=== PATIENT | female | born 1945 | race Caucasian/White ===

== ENCOUNTER → 2018-04-16 | Outpatient (CLI) | payer MEDICARE ==
[~2018-04-16] MED LIST: ALEN35TA6 PO; AMLO10TA2 PO; ASPI-496 PO; HYDR-3343 PO; LISI-170 PO; METO50TA82 PO; MULT-717 PO; OXCA300T PO; PHEN100T2 PO; POTA99TA3 PO; SIMV20TA3 PO; SPIR25TA3 PO
[2018-04-16 12:05] LABS: ALANINE AMINOTRANSFERASE 24 U/L (12-78); ALBUMIN 2.7 g/dL (3.4-5.0); ANION GAP 5 mmol/L (5-15); CALCIUM 8.9 mg/dL (8.5-10.1); CHLORIDE 101 mmol/L (98-107); CREATININE 0.82 mg/dL (0.55-1.02)
[2018-04-16 12:08] LABS: ALKALINE PHOSPHATASE 125 U/L (45-117); BILIRUBIN,TOTAL 0.2 mg/dL (0.2-1.0); TOTAL PROTEIN 8.3 g/dL (6.4-8.2)
== END | disposition home or self-care (01) ==
LOC: STAR 10:36
PROVIDERS: ATTEND Orthopaedic Surgery
DX: Z01.818 Encounter for other preprocedural examination (principal); S82.892P Other fracture of left lower leg, subsequent encounter for closed fracture with malunion; M12.872 Other specific arthropathies, not elsewhere classified, left ankle and foot; X58.XXXD Exposure to other specified factors, subsequent encounter
CPT/HCPCS: 36415; 80053; 93005

== ENCOUNTER 2018-04-20 08:24 | Day surgery (SDC) | payer MEDICARE ==
[~2018-04-20] VITALS: Ht 167.6 cm; Wt 73.5 kg
[2018-04-20] MEDS ORDERED: LACTATED RINGERS 1,000 ML IV SCH (08:52)
[2018-04-20 09:19] VITALS: BP 169/73
[2018-04-20] MEDS ORDERED: ACETAMINOPHEN 500 MG TABLET PO ONE (10:00)
[2018-04-20] MEDS ORDERED: GABAPENTIN 300 MG CAPSULE PO ONE (10:00)
[2018-04-20] MEDS ORDERED: FENTANYL PF 250 MCG/5ML ONE (10:52)
[2018-04-20] MEDS ORDERED: VANCOMYCIN 1,000 MG ONE (10:52)
[2018-04-20] MEDS ORDERED: LIDOCAINE/PF 1%, 30ML ONE (10:53)
[2018-04-20] MEDS ORDERED: CEFAZOLIN 1,000 MG ONE (11:14)
[2018-04-20] MEDS ORDERED: PROPOFOL 10 MG/ML, 20ML ONE (11:14)
[2018-04-20] MEDS ORDERED: ONDANSETRON ODT 8 MG PO PRN (12:30)
[2018-04-20] MEDS ORDERED: OXYcodone 5 MG/5 ML ORAL.SOL UDC PO PRN (12:30)
[2018-04-20] MEDS ORDERED: hydrALAzine 20 MG/ML, 1ML IV PRN (12:30)
[2018-04-20] MEDS ORDERED: MORPHINE SULFATE 4 MG/ML, 1ML IVPush PRN (12:30)
[2018-04-20] MEDS ORDERED: PROMETHAZINE 25 MG/ML, 1ML IV PRN (12:30)
[2018-04-20] MEDS ORDERED: FENTANYL PF 100 MCG/2ML IV PRN (12:30)
== END 2018-04-20 16:00 ==
LOC: OUT 08:24
PROVIDERS: ATTEND Orthopaedic Surgery
DX: M86.8X7 Other osteomyelitis, ankle and foot (principal); M19.072 Primary osteoarthritis, left ankle and foot; I25.10 Atherosclerotic heart disease of native coronary artery without angina pectoris; Z87.39 Personal history of other diseases of the musculoskeletal system and connective tissue; I10 Essential (primary) hypertension; Z88.0 Allergy status to penicillin; Z88.8 Allergy status to other drugs, medicaments and biological substances
CPT/HCPCS: 11981; 20680; 27640; 27705; 28120; 73600; 76000; 87070; 87075; 87077; 87176; 87186; 87205; C1713; J0690; J2704; J3010; J3370; J3490; J7120

== ENCOUNTER 2018-10-09 13:07 | Inpatient (IN) | payer MEDICARE ==
[~2018-10-09] VITALS: Ht 167.6 cm; Wt 72.0 kg
[~2018-10-09 13:07] MED LIST changes: +AMIO200T42 PO; -AMLO10TA2 PO; +AMLO10TA6 PO; +ATOR20TA9 PO; +CARV12.543 PO; +DAPT500V6 IV; +DOCU100C33 PO; +DOXA1TAB PO; +Daptomycin IVPB; +ENOX40SY4 SQ; +FAMO20TA7 PO; +HYDR100T25 PO; +LIDO700A20 TD; +LIDOCAINE PATCH TD; +LISI-167 PO; +LISI40TA PO; +ONDA4TAB7 PO; +OXCA150T3 PO; -OXCA300T PO; +OXCA300T19 PO; +POLY17PO5 PO; +POTA20PA25 PO; +QUET25TA PO; +RIVA20TA PO; -SPIR25TA3 PO; +SPIR25TA5 PO; +TRAM50TA2 PO
[2018-10-09 15:54] VITALS: BP 134/56
[2018-10-09] MEDS ORDERED: ONDANSETRON 4 MG TABLET PO PRN (17:00)
[2018-10-09] MEDS ORDERED: ONDANSETRON ODT 4 MG PO PRN (17:00)
[2018-10-09] MEDS ORDERED: LABETALOL 5MG/ML, 20ML IVPush PRN (17:00)
[2018-10-09] MEDS ORDERED: hydrALAzine 20 MG/ML, 1ML IVPush PRN (17:00)
[2018-10-09] MEDS ORDERED: DAPTOMYCIN 500 MG IV SCH (17:00)
[2018-10-09] MEDS ORDERED: ONDANSETRON 2MG/ML, 2ML IVPush PRN (17:00)
[2018-10-09 20:04] VITALS: BP 133/61
[2018-10-09] MEDS: ATORVASTATIN 20 MG TABLET PO SCH (20:20)
[2018-10-09] MEDS: QUETIAPINE 25MG TABLET PO SCH (20:21)
[2018-10-09] MEDS: DAPTOMYCIN 500 MG in SODIUM CHLORIDE 0.9% 100 ML IV SCH (20:22)
[2018-10-09] MEDS: ACETAMINOPHEN 325 MG TABLET PO PRN (20:28)
[2018-10-09] MEDS: OXCARBAZEPINE 150 MG TABLET PO SCH (20:29)
[2018-10-09] MEDS: DOCUSATE 100 MG CAPSULE PO SCH (20:34)
[2018-10-09] MEDS: HYDRALAZINE HCL 100 MG PO SCH (21:00)
[2018-10-10 01:44] VITALS: BP 132/62
[2018-10-10 05:07] LABS: ANION GAP 8 mmol/L (5-15); CALCIUM 9.2 mg/dL (8.5-10.1); CHLORIDE 99 mmol/L (98-107)
[2018-10-10 05:09] LABS: CREATININE 0.65 mg/dL (0.55-1.02)
[2018-10-10 05:12] LABS: BASOPHILS # (AUTO) 0.03 x10^3/uL (0-0.1); BASOPHILS % (AUTO) 1 % (0-1); EOSINOPHILS # (AUTO) 0.14 x10^3/uL (0-0.4); EOSINOPHILS % (AUTO) 3 % (1-7); LYMPHOCYTES # (AUTO) 1.82 x10^3/uL (1-3.4); LYMPHOCYTES % (AUTO) 36 % (22-44); MD NO; MEAN CORPUSCULAR HEMOGLOBIN 25.9 pg (27.0-34.8); MEAN CORPUSCULAR HGB CONC 32.9 g/dL (32.4-35.8); MEAN CORPUSCULAR VOLUME 78.7 fL (80-100); MONOCYTES # (AUTO) 0.43 x10^3/uL (0.2-0.8); MONOCYTES % (AUTO) 9 % (2-9); NEUTROPHILS # (AUTO) 2.58 x10^3/uL (1.8-6.8); NEUTROPHILS % (AUTO) 52 % (42-75); PLATELET COUNT 478 x10^3/uL (130-400); RED BLOOD COUNT 3.31 x10^6/uL (3.82-5.3); RED CELL DISTRIBUTION WIDTH 16.8 % (9.6-15.2)
[2018-10-10 07:36] VITALS: BP 146/62
[2018-10-10] MEDS: AMLODIPINE 10 MG TAB PO SCH (09:16)
[2018-10-10] MEDS: LISINOPRIL 20 MG TABLET PO SCH (09:16)
[2018-10-10] MEDS: DOCUSATE 100 MG CAPSULE PO SCH ×2 (09:17→20:36)
[2018-10-10] MEDS: DOXAZOSIN 1MG TABLET PO SCH (09:17)
[2018-10-10] MEDS: POTASSIUM CHLORIDE 20 MEQ TAB.ER.PRT PO SCH (09:17)
[2018-10-10] MEDS: AMIODARONE 200 MG TABLET PO SCH (09:17)
[2018-10-10] MEDS: POLYETHYLENE GLYCOL 17 GM PACKET PO SCH (09:17)
[2018-10-10] MEDS: OXCARBAZEPINE 150 MG TABLET PO SCH ×2 (09:55→20:36)
[2018-10-10] MEDS: HYDRALAZINE HCL 100 MG PO SCH ×3 (09:55→20:37)
[2018-10-10 13:42] VITALS: BP 144/61
[2018-10-10] MEDS: DAPTOMYCIN 500 MG in SODIUM CHLORIDE 0.9% 100 ML IV SCH (18:07)
[2018-10-10] MEDS: QUETIAPINE 25MG TABLET PO SCH (20:36)
[2018-10-10] MEDS: ATORVASTATIN 20 MG TABLET PO SCH (20:36)
[2018-10-10 20:46] VITALS: BP 129/54
[2018-10-11 01:49] VITALS: BP 127/56
[2018-10-11] MEDS ORDERED: FENTANYL PF 100 MCG/2ML ONE (07:29)
[2018-10-11] MEDS ORDERED: MIDAZOLAM 1 MG/ML, 2ML ONE (07:29)
[2018-10-11] MEDS ORDERED: TOBRAMYCIN SULFATE 1.2 GM IMP ONE (07:33)
[2018-10-11] MEDS ORDERED: DEXAMETHASONE 4 MG/ML, 1ML ONE ×2 (07:58→07:59)
[2018-10-11] MEDS ORDERED: PROPOFOL 10 MG/ML, 20ML ONE ×2 (07:58→08:15)
[2018-10-11] MEDS ORDERED: ONDANSETRON 2MG/ML, 2ML ONE (07:59)
[2018-10-11] MEDS ORDERED: PHENYLEPHRINE 10 MG/ML ONE (08:15)
[2018-10-11] MEDS ORDERED: CEFAZOLIN 1,000 MG ONE (08:15)
[2018-10-11] MEDS ORDERED: ACETAMINOPHEN 325 MG TABLET PO PRN (08:30)
[2018-10-11] MEDS ORDERED: PROMETHAZINE 25 MG/ML, 1ML IV PRN (08:30)
[2018-10-11] MEDS ORDERED: hydrALAzine 20 MG/ML, 1ML IV PRN (08:30)
[2018-10-11] MEDS ORDERED: MORPHINE SULFATE 4 MG/ML, 1ML IVPush PRN (08:30)
[2018-10-11] MEDS ORDERED: FENTANYL PF 100 MCG/2ML IV PRN (08:30)
[2018-10-11] MEDS ORDERED: ONDANSETRON ODT 8 MG PO PRN (08:30)
[2018-10-11] MEDS ORDERED: HYDROmorphone 1 MG/ML, 1ML IV PRN (08:30)
[2018-10-11] MEDS ORDERED: MEPERIDINE/PF 25MG/0.5ML IVPush PRN (08:30)
[2018-10-11] MEDS ORDERED: PROMETHAZINE 25 MG/ML, 1ML IM PRN ×2 (08:30)
[2018-10-11] MEDS ORDERED: PROMETHAZINE 12.5 MG SUPP PR PRN (08:30)
[2018-10-11] MEDS ORDERED: ONDANSETRON 2MG/ML, 2ML IV PRN (08:30)
[2018-10-11] MEDS ORDERED: LABETALOL 5MG/ML, 20ML IV PRN (08:30)
[2018-10-11] MEDS ORDERED: OXYcodone 5 MG/5 ML ORAL.SOL UDC PO PRN (08:30)
[2018-10-11] MEDS ORDERED: PROMETHAZINE 25 MG SUPP PR PRN (08:30)
[2018-10-11] MEDS: AMLODIPINE 10 MG TAB PO SCH (09:00)
[2018-10-11] MEDS: DOCUSATE 100 MG CAPSULE PO SCH ×2 (09:00→20:22)
[2018-10-11] MEDS: POLYETHYLENE GLYCOL 17 GM PACKET PO SCH (09:00)
[2018-10-11] MEDS: POTASSIUM CHLORIDE 20 MEQ TAB.ER.PRT PO SCH (09:00)
[2018-10-11] MEDS: AMIODARONE 200 MG TABLET PO SCH (09:00)
[2018-10-11] MEDS: OXCARBAZEPINE 150 MG TABLET PO SCH ×2 (09:00→20:23)
[2018-10-11] MEDS: DOXAZOSIN 1MG TABLET PO SCH (09:00)
[2018-10-11] MEDS: LISINOPRIL 20 MG TABLET PO SCH (09:00)
[2018-10-11] MEDS: HYDRALAZINE HCL 100 MG PO SCH (09:00)
[2018-10-11 09:54] LABS: INTERNATIONAL NORMALIZED RATIO 1.03 (0.93-1.1); PROTHROMBIN TIME 10.7 Seconds (9.6-11.5)
[2018-10-11] MEDS ORDERED: HYDROcodone/APAP 10/325 MG TABLET PO PRN (11:30)
[2018-10-11] MEDS ORDERED: morphine SULFATE 10 MG/ML, 1ML IV PRN (11:30)
[2018-10-11 13:56] VITALS: BP 144/65
[2018-10-11] MEDS ORDERED: DIPHENHYDRAMINE 50 MG CAPSULE PO PRN (15:00)
[2018-10-11] MEDS: RIVAROXABAN 20 MG TABLET PO SCH (18:01)
[2018-10-11 18:02] VITALS: BP 133/62
[2018-10-11] MEDS: DAPTOMYCIN 500 MG in SODIUM CHLORIDE 0.9% 100 ML IV SCH (18:45)
[2018-10-11] MEDS: SODIUM CHLORIDE FLUSH 10ML SYR IVF SCH (20:22)
[2018-10-11] MEDS: QUETIAPINE 25MG TABLET PO SCH (20:23)
[2018-10-11] MEDS: ATORVASTATIN 20 MG TABLET PO SCH (20:23)
[2018-10-11] MEDS: ACETAMINOPHEN 325 MG TABLET PO PRN (20:25)
[2018-10-11 21:51] VITALS: BP 136/65
[2018-10-12 03:07] VITALS: BP 141/60
[2018-10-12 04:59] LABS: HCT (SEDRATE) 24.2 % (34.6-47.8)
[2018-10-12 05:08] LABS: ALANINE AMINOTRANSFERASE 25 U/L (12-78); ALBUMIN 2.5 g/dL (3.4-5.0); ANION GAP 6 mmol/L (5-15); C-REACTIVE PROTEIN, QUANT 0.81 mg/dL (0.02-0.49); CALCIUM 8.7 mg/dL (8.5-10.1); CHLORIDE 101 mmol/L (98-107); CREATININE 0.66 mg/dL (0.55-1.02)
[2018-10-12 05:10] LABS: ALKALINE PHOSPHATASE 107 U/L (45-117); BILIRUBIN,TOTAL 0.3 mg/dL (0.2-1.0); TOTAL PROTEIN 6.1 g/dL (6.4-8.2)
[2018-10-12 06:43] LABS: BASOPHILS % (AUTO) 0 % (0-1); EOSINOPHILS # (AUTO) 0.04 x10^3/uL (0-0.4); EOSINOPHILS % (AUTO) 1 % (1-7); LYMPHOCYTES # (AUTO) 0.89 x10^3/uL (1-3.4); LYMPHOCYTES % (AUTO) 13 % (22-44); MD NO; MEAN CORPUSCULAR HEMOGLOBIN 25.6 pg (27.0-34.8); MEAN CORPUSCULAR HGB CONC 32.9 g/dL (32.4-35.8); MEAN PLATELET VOLUME 6.7 fL (7.4-10.4); MONOCYTES # (AUTO) 0.36 x10^3/uL (0.2-0.8); MONOCYTES % (AUTO) 5 % (2-9); NEUTROPHILS # (AUTO) 5.44 x10^3/uL (1.8-6.8); NEUTROPHILS % (AUTO) 81 % (42-75); PLATELET COUNT 463 x10^3/uL (130-400); RED BLOOD COUNT 3.05 x10^6/uL (3.82-5.3)
[2018-10-12 07:01] VITALS: BP 138/54
[2018-10-12] MEDS: ACETAMINOPHEN 325 MG TABLET PO PRN ×2 (07:44→13:49)
[2018-10-12] MEDS: SODIUM CHLORIDE FLUSH 10ML SYR IVF SCH (07:45)
[2018-10-12] MEDS ORDERED: ASPIRIN 81 MG TABLET CHEW PO SCH (09:00)
[2018-10-12] MEDS: AMLODIPINE 10 MG TAB PO SCH (09:19)
[2018-10-12] MEDS: POTASSIUM CHLORIDE 20 MEQ TAB.ER.PRT PO SCH (09:19)
[2018-10-12] MEDS: LISINOPRIL 20 MG TABLET PO SCH (09:20)
[2018-10-12] MEDS: DOXAZOSIN 1MG TABLET PO SCH (09:20)
[2018-10-12] MEDS: OXCARBAZEPINE 150 MG TABLET PO SCH (09:20)
[2018-10-12] MEDS: POLYETHYLENE GLYCOL 17 GM PACKET PO SCH (09:21)
[2018-10-12] MEDS: DOCUSATE 100 MG CAPSULE PO SCH (09:21)
[2018-10-12] MEDS: AMIODARONE 200 MG TABLET PO SCH (09:21)
[2018-10-12 13:53] VITALS: BP 103/41
[2018-10-12] MEDS ORDERED: LISI5TAB7 PO (14:36)
[2018-10-12 16:50] VITALS: BP 128/53
[2018-10-12] MEDS: RIVAROXABAN 20 MG TABLET PO SCH (16:51)
[2018-10-12] MEDS: DAPTOMYCIN 500 MG in SODIUM CHLORIDE 0.9% 100 ML IV SCH (16:56)
[2018-10-12 19:15] VITALS: BP 121/68
== END 2018-10-12 19:33 | DRG 492 ==
LOC: 4NOR 15:11
PROVIDERS: ADMIT Internal Medicine; ATTEND Internal Medicine
PROC: 0SHG08Z Insertion of Spacer into Left Ankle Joint, Open Approach (ICD-10-PCS; 2018-10-11)
PROC: 0SP Lower Joints, Removal (ICD-10-PCS; 2018-10-11)
PROC: 0SBG0ZZ Excision of Left Ankle Joint, Open Approach (ICD-10-PCS; principal; 2018-10-11 08:00)
DX: T84.098A Other mechanical complication of other internal joint prosthesis, initial encounter (principal); A41.02 Sepsis due to Methicillin resistant Staphylococcus aureus; E44.0 Moderate protein-calorie malnutrition; M00.9 Pyogenic arthritis, unspecified; T81.31XA Disruption of external operation (surgical) wound, not elsewhere classified, initial encounter; D68.59 Other primary thrombophilia; E22.2 Syndrome of inappropriate secretion of antidiuretic hormone; B95.62 Methicillin resistant Staphylococcus aureus infection as the cause of diseases classified elsewhere; D63.8 Anemia in other chronic diseases classified elsewhere; E78.5 Hyperlipidemia, unspecified; G40.909 Epilepsy, unspecified, not intractable, without status epilepticus; I11.9 Hypertensive heart disease without heart failure; I25.10 Atherosclerotic heart disease of native coronary artery without angina pectoris; I48.91 Unspecified atrial fibrillation; Z66 Do not resuscitate; Z79.01 Long term (current) use of anticoagulants; Z79.2 Long term (current) use of antibiotics; Z79.82 Long term (current) use of aspirin; Z68.25 Body mass index [BMI] 25.0-25.9, adult; Z88.0 Allergy status to penicillin; Z88.8 Allergy status to other drugs, medicaments and biological substances; Z79.899 Other long term (current) drug therapy; Z86.73 Personal history of transient ischemic attack (TIA), and cerebral infarction without residual deficits; Z95.5 Presence of coronary angioplasty implant and graft
CPT/HCPCS: 36415; 80048; 80053; 83735; 84100; 85025; 85610; 85651; 86140; 87070; 87075; 87077; 87102; 87176; 87186; 87205; C1713; G0378; J0690; J0878; J1100; J2250; J2405; J2704; J3010; J3260; J2370

== ENCOUNTER 2018-10-29 22:51 | Inpatient (IN) | payer MEDICARE ==
[~2018-10-29] VITALS: Ht 167.6 cm; Wt 68.3 kg
[~2018-10-29 22:51] MED LIST changes: +ATOR20TA37 PO; -ATOR20TA9 PO; +LISI5TAB7 PO
[2018-10-29] MEDS ORDERED: SODIUM CHLORIDE 0.9% 1,000 ML IV ONE (22:55)
[2018-10-29] MEDS ORDERED: SODIUM CHLORIDE FLUSH 10ML SYR IVF ONE (23:00)
[2018-10-29 23:26] LABS: BASOPHILS % (AUTO) 0 % (0-1); EOSINOPHILS # (AUTO) 0.11 x10^3/uL (0-0.4); EOSINOPHILS % (AUTO) 1 % (1-7); LYMPHOCYTES # (AUTO) 1.82 x10^3/uL (1-3.4); LYMPHOCYTES % (AUTO) 13 % (22-44); MD NO; MEAN CORPUSCULAR HEMOGLOBIN 25.1 pg (27.0-34.8); MEAN CORPUSCULAR VOLUME 78.2 fL (80-100); MEAN PLATELET VOLUME 7.1 fL (7.4-10.4); MONOCYTES # (AUTO) 0.39 x10^3/uL (0.2-0.8); MONOCYTES % (AUTO) 3 % (2-9); NEUTROPHILS # (AUTO) 11.86 x10^3/uL (1.8-6.8); NEUTROPHILS % (AUTO) 84 % (42-75); PLATELET COUNT 479 x10^3/uL (130-400); RED BLOOD COUNT 4.07 x10^6/uL (3.82-5.3); RED CELL DISTRIBUTION WIDTH 16.3 % (9.6-15.2)
[2018-10-29 23:37] LABS: INTERNATIONAL NORMALIZED RATIO 1.21 (0.93-1.1); PROTHROMBIN TIME 12.7 Seconds (9.6-11.5)
[2018-10-29 23:38] LABS: ALANINE AMINOTRANSFERASE 26 U/L (12-78); ALBUMIN 3.2 g/dL (3.4-5.0); ANION GAP 18 mmol/L (5-15); CALCIUM 8.8 mg/dL (8.5-10.1); CHLORIDE 99 mmol/L (98-107)
[2018-10-29 23:41] LABS: ALKALINE PHOSPHATASE 99 U/L (45-117); BILIRUBIN,TOTAL 0.1 mg/dL (0.2-1.0); CREATININE 1.12 mg/dL (0.55-1.02); TOTAL PROTEIN 7.4 g/dL (6.4-8.2)
[2018-10-29 23:47] LABS: MICROSCOPIC NOT IND
[2018-10-29 23:50] LABS: CULTURE INDICATED? NO
[2018-10-29] MEDS ORDERED: CEFTRIAXONE (23:57)
[2018-10-29] MEDS ORDERED: HYDR100T25 PO (23:57)
[2018-10-29] MEDS ORDERED: MULTIVITAMIN (23:57)
[2018-10-29] MEDS ORDERED: AMLO10TA4 PO (23:57)
[2018-10-29] MEDS ORDERED: MICONAZOLE POWDER (23:57)
[2018-10-29] MEDS ORDERED: METH500T97 PO (23:57)
[2018-10-30] VITALS (8 sets, daily range): BP systolic 133–184; BP diastolic 58–80
[2018-10-30] MEDS ORDERED: POTASSIUM CHLORIDE 40 MEQ in SODIUM CHLORIDE 0.9% 500 ML IV ONE ×2 (01:00→08:30)
[2018-10-30] MEDS ORDERED: DAPTOMYCIN 500 MG IV SCH (01:00)
[2018-10-30] MEDS ORDERED: LORazepam 2 MG/ML, 1ML IVPush PRN (01:30)
[2018-10-30] MEDS ORDERED: hydrALAzine 20 MG/ML, 1ML IVPush PRN (01:30)
[2018-10-30] MEDS ORDERED: LABETALOL 5MG/ML, 20ML IVPush PRN (01:30)
[2018-10-30] MEDS ORDERED: HEPARIN 5,000 UNITS/ML, 1ML SQ SCH (01:30)
[2018-10-30] MEDS ORDERED: DOCUSATE 100 MG CAPSULE PO PRN (01:30)
[2018-10-30] MEDS ORDERED: BISACODYL 10 MG SUPP PR PRN (01:30)
[2018-10-30] MEDS ORDERED: PROMETHAZINE 25 MG/ML, 1ML IM PRN (01:30)
[2018-10-30] MEDS: GABAPENTIN 300 MG CAPSULE PO SCH ×4 (01:30→20:42)
[2018-10-30] MEDS ORDERED: morphine SULFATE 10 MG/ML, 1ML IVPush PRN (01:30)
[2018-10-30] MEDS ORDERED: ONDANSETRON ODT 4 MG PO PRN (01:30)
[2018-10-30] MEDS ORDERED: ONDANSETRON 2MG/ML, 2ML IVPush PRN (01:30)
[2018-10-30] MEDS ORDERED: POLYETHYLENE GLYCOL 17 GM PACKET PO PRN (01:30)
[2018-10-30 02:03] LABS: FREE T4 (FREE THYROXINE) 0.71 ng/dL (0.76-1.46); THYROID STIMULATING HORMONE 2.03 mIU/L (0.358-3.740)
[2018-10-30] MEDS: CEFTRIAXONE PMX 2GM/50ML 50 ML IV SCH (02:43)
[2018-10-30] MEDS: SODIUM CHLORIDE 0.9% 1,000 ML IV SCH ×3 (02:46→20:41)
[2018-10-30] MEDS ORDERED: MAGNESIUM SULFATE PMX 2GM/50ML 50 ML IV ONE (08:30)
[2018-10-30] MEDS: AMIODARONE 200 MG TABLET PO SCH (09:40)
[2018-10-30] MEDS: ASPIRIN 81 MG TABLET EC PO SCH (09:40)
[2018-10-30] MEDS: OXCARBAZEPINE 150 MG TABLET PO SCH ×2 (09:41→20:42)
[2018-10-30] MEDS: MULTIVITAMIN 1 TABLET PO SCH (09:41)
[2018-10-30] MEDS: MAGNESIUM CHLORIDE 64 MG TABLET.DR PO SCH ×2 (09:41→20:42)
[2018-10-30] MEDS: METHOCARBAMOL 500 MG TABLET PO PRN ×2 (10:10→18:11)
[2018-10-30] MEDS: ACETAMINOPHEN 325 MG TABLET PO PRN ×3 (10:10→21:18)
[2018-10-30] MEDS: DAPTOMYCIN 500 MG in SODIUM CHLORIDE 0.9% 100 ML IV SCH (15:45)
[2018-10-30] MEDS ORDERED: ATORVASTATIN 20 MG TABLET PO SCH (21:00)
[2018-10-30] MEDS ORDERED: QUETIAPINE 25MG TABLET PO SCH (21:00)
[2018-10-30] MEDS ORDERED: RIVAROXABAN 20 MG TABLET PO SCH (21:00)
[2018-10-31 00:39] VITALS: BP 118/46
[2018-10-31] MEDS: CEFTRIAXONE PMX 2GM/50ML 50 ML IV SCH (02:12)
[2018-10-31] MEDS: SODIUM CHLORIDE 0.9% 1,000 ML IV SCH (02:52)
[2018-10-31 04:04] LABS: <PLATELET ESTIMATE> ADEQUATE; SMALL PLATELETS 1+
[2018-10-31 04:36] LABS: ALANINE AMINOTRANSFERASE 28 U/L (12-78); ALBUMIN 2.5 g/dL (3.4-5.0); ANION GAP 5 mmol/L (5-15); CALCIUM 7.8 mg/dL (8.5-10.1); CHLORIDE 109 mmol/L (98-107); CHOLESTEROL, TOTAL 134 mg/dL (140-239); CREATININE 0.66 mg/dL (0.55-1.02)
[2018-10-31 04:38] LABS: ALKALINE PHOSPHATASE 78 U/L (45-117); BILIRUBIN,TOTAL 0.2 mg/dL (0.2-1.0); HDL CHOLESTEROL (DIRECT) 51 mg/dL (40-60); TOTAL PROTEIN 5.8 g/dL (6.4-8.2); TRIGLYCERIDES 51 mg/dL (50-200); VLDL CHOLESTEROL 10 mg/dL (0-25)
[2018-10-31 05:20] LABS: HDL CHOL % 51 % (28-40)
[2018-10-31 05:32] LABS: BASOPHILS # (AUTO) 0.04 x10^3/uL (0-0.1); BASOPHILS % (AUTO) 1 % (0-1); EOSINOPHILS # (AUTO) 0.36 x10^3/uL (0-0.4); EOSINOPHILS % (AUTO) 7 % (1-7); LYMPHOCYTES # (AUTO) 1.71 x10^3/uL (1-3.4); LYMPHOCYTES % (AUTO) 35 % (22-44); MD NO; MEAN CORPUSCULAR HEMOGLOBIN 25.4 pg (27.0-34.8); MEAN CORPUSCULAR HGB CONC 32.9 g/dL (32.4-35.8); MEAN CORPUSCULAR VOLUME 77.3 fL (80-100); MEAN PLATELET VOLUME 7.4 fL (7.4-10.4); MONOCYTES # (AUTO) 0.43 x10^3/uL (0.2-0.8); MONOCYTES % (AUTO) 9 % (2-9); NEUTROPHILS % (AUTO) 48 % (42-75); PLATELET COUNT 312 x10^3/uL (130-400); RED BLOOD COUNT 3.14 x10^6/uL (3.82-5.3); RED CELL DISTRIBUTION WIDTH 16.1 % (9.6-15.2)
[2018-10-31 05:41] LABS: CHOL/HDL RATIO 2.6; LDL CHOLESTEROL,CALCULATED 73 mg/dL (54-169); LDL/HDL RATIO 1.4 (0.5-3.0)
[2018-10-31] MEDS: ASPIRIN 81 MG TABLET EC PO SCH (05:52)
[2018-10-31 07:10] VITALS: BP 164/99
[2018-10-31] MEDS: GABAPENTIN 300 MG CAPSULE PO SCH ×2 (09:36→15:17)
[2018-10-31] MEDS: METHOCARBAMOL 500 MG TABLET PO PRN (09:36)
[2018-10-31] MEDS: ACETAMINOPHEN 325 MG TABLET PO PRN ×2 (09:36→15:17)
[2018-10-31] MEDS: MAGNESIUM CHLORIDE 64 MG TABLET.DR PO SCH (09:36)
[2018-10-31] MEDS: OXCARBAZEPINE 150 MG TABLET PO SCH (09:36)
[2018-10-31] MEDS: MULTIVITAMIN 1 TABLET PO SCH (09:37)
[2018-10-31] MEDS: AMIODARONE 200 MG TABLET PO SCH (09:37)
[2018-10-31] MEDS ORDERED: TRAM50TA2 PO (12:06)
[2018-10-31] MEDS ORDERED: CEFTRIAXONE IV (12:06)
[2018-10-31] MEDS ORDERED: AMLO10TA4 PO (12:06)
[2018-10-31] MEDS ORDERED: METH500T97 PO (12:07)
[2018-10-31 12:58] VITALS: BP 152/71
[2018-10-31] MEDS: DAPTOMYCIN 500 MG in SODIUM CHLORIDE 0.9% 100 ML IV SCH (15:16)
== END 2018-10-31 17:12 | DRG 100 ==
LOC: ED 10-30 00:27 → EDIP 10-30 00:51 → 5SO 10-30 01:50
PROVIDERS: ADMIT Internal Medicine; ATTEND Internal Medicine
PROC: 0T9B70Z Drainage of Bladder with Drainage Device, Via Natural or Artificial Opening (ICD-10-PCS; principal; 2018-10-29)
DX: G40.409 Other generalized epilepsy and epileptic syndromes, not intractable, without status epilepticus (principal); J96.01 Acute respiratory failure with hypoxia; N17.0 Acute kidney failure with tubular necrosis; G92 Toxic encephalopathy; E87.2 Acidosis; M86.9 Osteomyelitis, unspecified; E44.0 Moderate protein-calorie malnutrition; D68.59 Other primary thrombophilia; E87.6 Hypokalemia; E86.0 Dehydration; D64.9 Anemia, unspecified; Z96.643 Presence of artificial hip joint, bilateral; E78.5 Hyperlipidemia, unspecified; I48.2 Chronic atrial fibrillation; I10 Essential (primary) hypertension; M81.0 Age-related osteoporosis without current pathological fracture; I25.10 Atherosclerotic heart disease of native coronary artery without angina pectoris; Z95.5 Presence of coronary angioplasty implant and graft; Z86.73 Personal history of transient ischemic attack (TIA), and cerebral infarction without residual deficits; Z82.49 Family history of ischemic heart disease and other diseases of the circulatory system; Z88.6 Allergy status to analgesic agent; Z88.0 Allergy status to penicillin; Z86.14 Personal history of Methicillin resistant Staphylococcus aureus infection; Z90.710 Acquired absence of both cervix and uterus; Z90.89 Acquired absence of other organs; Z90.49 Acquired absence of other specified parts of digestive tract; Z87.891 Personal history of nicotine dependence; Z68.24 Body mass index [BMI] 24.0-24.9, adult; T42.4X5A Adverse effect of benzodiazepines, initial encounter
CPT/HCPCS: 36415; 70450; 71045; 80053; 80061; 81003; 82550; 83036; 83605; 83735; 84100; 84145; 84439; 84443; 85025; 85610; 85730; 87040; 93005; 99285; G0378; J0696; J0878; J3480; J0360; J3475; J7030; J7040

== ENCOUNTER 2018-11-17 05:44 | Observation (INO) | payer MEDICARE ==
[~2018-11-17] VITALS: Ht 170.2 cm; Wt 69.4 kg
[~2018-11-17 05:44] MED LIST changes: +AMLO10TA4 PO; +CEFTRIAXONE; +CEFTRIAXONE IV; +METH500T97 PO; +MICONAZOLE POWDER; +MULTIVITAMIN
--- NOTE | 2018-11-17 05:55 | NUR ---
Pt BIBA r/t seizures and altered LOC. Pt had one witnessed seizure lasting approx 1 minute, EMS gave pt 4 of versed IM. Pt has hx of seizures. Pt responding only to pain for EMS. Pt not responding to pain upon arrival. Pt breathing E/U, pt placed on 4L O2 via NC, pt normally on this at [facility]. Provider to bedside for pt eval. seizure pads on bed. EKG completed. Pt placed on cardiac and VS monitoring.
[2018-11-17] MEDS ORDERED: SODIUM CHLORIDE FLUSH 10ML SYR IVF ONE (06:00)
--- NOTE | 2018-11-17 06:02 | NUR ---
xray at bedside.
--- NOTE | 2018-11-17 06:12 | NUR ---
Lab at bedside for blood draw.
--- NOTE | 2018-11-17 06:36 | NUR ---
urine sample collected via straight cath with second RN assist. urine sent to lab. pt pushed with significant strength against RN's while attempting straight catheter. pt continues to be lethargic otherwise. Sterile technique used and maintained during straight cath. Pt to CT via shira.
[2018-11-17 06:38] LABS: BASOPHILS % (AUTO) 0 % (0-1); EOSINOPHILS # (AUTO) 0.32 x10^3/uL (0-0.4); EOSINOPHILS % (AUTO) 3 % (1-7); LYMPHOCYTES # (AUTO) 0.77 x10^3/uL (1-3.4); LYMPHOCYTES % (AUTO) 6 % (22-44); MD NO; MEAN CORPUSCULAR HEMOGLOBIN 24.4 pg (27.0-34.8); MEAN CORPUSCULAR HGB CONC 32.7 g/dL (32.4-35.8); MEAN CORPUSCULAR VOLUME 74.7 fL (80-100); MEAN PLATELET VOLUME 7.2 fL (7.4-10.4); MONOCYTES % (AUTO) 8 % (2-9); NEUTROPHILS # (AUTO) 10.73 x10^3/uL (1.8-6.8); NEUTROPHILS % (AUTO) 84 % (42-75); PLATELET COUNT 299 x10^3/uL (130-400); RED BLOOD COUNT 3.81 x10^6/uL (3.82-5.3); RED CELL DISTRIBUTION WIDTH 16.4 % (9.6-15.2)
[2018-11-17 06:46] LABS: ALANINE AMINOTRANSFERASE 22 U/L (12-78); ALBUMIN 3.1 g/dL (3.4-5.0); ANION GAP 16 mmol/L (5-15); CALCIUM 8.7 mg/dL (8.5-10.1); CHLORIDE 103 mmol/L (98-107); CREATININE 0.98 mg/dL (0.55-1.02)
[2018-11-17] MEDS ORDERED: LISI2.5T PO (06:47)
[2018-11-17] MEDS ORDERED: RIVA20TA PO (06:47)
[2018-11-17] MEDS ORDERED: HYDR100T25 PO (06:49)
[2018-11-17 06:50] LABS: ALKALINE PHOSPHATASE 97 U/L (45-117); BILIRUBIN,TOTAL 0.2 mg/dL (0.2-1.0); TROPONIN I 0.025 ng/mL (0.000-0.045)
--- NOTE | 2018-11-17 06:51 | NUR ---
Pt return from CT. Pt yawning and responding to pain and touch. Pt appears comfortable. VSS. will continue to monitor.
--- NOTE | 2018-11-17 06:59 | NUR ---
Report to Emely SOUZA.
--- NOTE | 2018-11-17 07:06 | NUR ---
VSS, O2 IS 4L/NC. PT IS RESTING ON GURNEY WITH EYES CLOSED. WOUND VAC IS IN PLACE AT [facility]. SHOWS PICC LINE AT [facility]. PT IS RESPONSIVE TO STIMULI. PT IS A RESIDENT AT [facility]. PT IS IN ED FOR WITNESSED SEIZURE ACTIVITY. PT HAS HISTORY OF SEIZURES AND MRSA.
[2018-11-17] MEDS ORDERED: POTASSIUM CHLORIDE 40 MEQ in SODIUM CHLORIDE 0.9% 500 ML IV SCH (08:00)
[2018-11-17] MEDS ORDERED: NS + 40MEQ KCL 500 ML IV SCH (08:00)
--- NOTE | 2018-11-17 08:05 | NUR ---
NO CHANGE IN CONDITION , VSS. CALL LIGHT IS WITHIN REACH, PT IS RESTING ON GURNEY, INDEPENDENTLY CHANGES POSITION BY HERSELF ON GURNEY.
[2018-11-17 08:10] LABS: MICROSCOPIC INDICATED
[2018-11-17] MEDS ORDERED: SODIUM CHLORIDE 0.9% 1,000 ML IV ONE (08:14)
[2018-11-17 08:27] LABS: CULTURE INDICATED? YES
[2018-11-17] MEDS ORDERED: SODIUM CHLORIDE FLUSH 10ML SYR IVF PRN (08:30)
--- NOTE | 2018-11-17 08:37 | NUR ---
WAITING FOR KCL GTT FROM PHARMACY.
[2018-11-17] MEDS ORDERED: POTASSIUM CHLORIDE 40 MEQ in SODIUM CHLORIDE 0.9% 500 ML IV ONE ×2 (09:30→10:30)
--- NOTE | 2018-11-17 09:30 | NUR ---
VSS. PT IS RESTING ON GURNEY WITH EYES CLOSED, RESPIRATIONS EVEN AND UNLABORED. WAITING FOR UA RESULT FOR DISPO. CALL LIGHT IS WITHIN REACH.
[2018-11-17] MEDS ORDERED: NS + 20MEQ KCL 1,000 ML IV SCH (10:28)
[2018-11-17] MEDS ORDERED: hydrALAzine 20 MG/ML, 1ML IVPush PRN (10:30)
[2018-11-17] MEDS ORDERED: LABETALOL 5MG/ML, 20ML IVPush PRN (10:30)
--- NOTE | 2018-11-17 10:30 | NUR ---
RECEIVED KCL FROM PHARMACY. GTT STARTED AT THIS TIME. VSS. PT IS ALERT AND RESPONSIVE TO VOICE STIMULI.
[2018-11-17] MEDS ORDERED: ONDANSETRON 4 MG TABLET PO PRN (11:00)
[2018-11-17 11:04] LABS: THYROID STIMULATING HORMONE 2.61 mIU/L (0.358-3.740)
[2018-11-17] MEDS ORDERED: MAGNESIUM SULFATE PMX 2GM/50ML 50 ML IV ONE (11:30)
[2018-11-17] MEDS ORDERED: CEFTRIAXONE PMX 1GM/50ML 50 ML ONE (11:40)
[2018-11-17] MEDS: CEFTRIAXONE PMX 1GM/50ML 50 ML IV SCH (11:57)
--- NOTE | 2018-11-17 13:44 | NUR ---
PT HAD LARGE, SOFT BM X 1, AND URINATED IN BED MADRID. TAKING PO'S WITHOUT DIFFICULTY. ALERT AND ORIENTED X 4. SEIZURE PADS ARE IN PLACE. VSS.
--- NOTE | 2018-11-17 14:33 | NUR ---
CALLED REPORT TO TURNER SOUZA. OK FOR PT TO GO TO THE FLOOR NOW.
[2018-11-17 15:48] VITALS: BP 177/70
[2018-11-17] MEDS: ACETAMINOPHEN 325 MG TABLET PO PRN (16:11)
[2018-11-17] MEDS: QUETIAPINE 25MG TABLET PO SCH (21:47)
[2018-11-17] MEDS: ATORVASTATIN 20 MG TABLET PO SCH (21:48)
[2018-11-17] MEDS: OXCARBAZEPINE 150 MG TABLET PO SCH (21:49)
[2018-11-17] MEDS: RIVAROXABAN 20 MG TABLET PO SCH (21:49)
[2018-11-17] MEDS: DIVALPROEX 125 MG CAP.SPRINK PO SCH (21:49)
[2018-11-17 21:55] VITALS: BP 158/65
[2018-11-18 02:48] VITALS: BP 161/67
[2018-11-18] MEDS: ACETAMINOPHEN 325 MG TABLET PO PRN (03:07)
[2018-11-18 06:08] LABS: MEAN CORPUSCULAR HEMOGLOBIN 24.1 pg (27.0-34.8); MEAN CORPUSCULAR HGB CONC 32.4 g/dL (32.4-35.8); MEAN CORPUSCULAR VOLUME 74.4 fL (80-100); MEAN PLATELET VOLUME 7.3 fL (7.4-10.4); PLATELET COUNT 274 x10^3/uL (130-400); RED BLOOD COUNT 3.41 x10^6/uL (3.82-5.3); RED CELL DISTRIBUTION WIDTH 16.3 % (9.6-15.2)
[2018-11-18 06:13] LABS: ANION GAP 6 mmol/L (5-15); CALCIUM 8.3 mg/dL (8.5-10.1); CHLORIDE 108 mmol/L (98-107)
[2018-11-18 06:14] LABS: CREATININE 0.74 mg/dL (0.55-1.02)
[2018-11-18 06:23] LABS: BASOPHILS # (AUTO) 0.03 x10^3/uL (0-0.1); BASOPHILS % (AUTO) 1 % (0-1); EOSINOPHILS # (AUTO) 0.23 x10^3/uL (0-0.4); EOSINOPHILS % (AUTO) 4 % (1-7); LYMPHOCYTES # (AUTO) 1.24 x10^3/uL (1-3.4); LYMPHOCYTES % (AUTO) 21 % (22-44); MD SCAN; MONOCYTES # (AUTO) 0.51 x10^3/uL (0.2-0.8); MONOCYTES % (AUTO) 8 % (2-9); NEUTROPHILS # (AUTO) 4.04 x10^3/uL (1.8-6.8); NEUTROPHILS % (AUTO) 67 % (42-75)
[2018-11-18 07:05] VITALS: BP 187/72
[2018-11-18] MEDS ORDERED: LISINOPRIL 5 MG TABLET PO SCH (09:00)
[2018-11-18] MEDS: DIVALPROEX 125 MG CAP.SPRINK PO SCH ×2 (10:10→20:15)
[2018-11-18] MEDS: OXCARBAZEPINE 150 MG TABLET PO SCH ×2 (10:11→20:16)
[2018-11-18] MEDS: AMIODARONE 200 MG TABLET PO SCH (10:11)
[2018-11-18] MEDS: LISINOPRIL 5 MG TABLET PO SCH (10:12)
[2018-11-18] MEDS: CEFTRIAXONE PMX 1GM/50ML 50 ML IV SCH (11:16)
[2018-11-18] MEDS ORDERED: LISI5TAB7 PO (11:17)
[2018-11-18] MEDS ORDERED: DIVA125C2 PO (11:17)
[2018-11-18 13:11] VITALS: BP 149/58
[2018-11-18 20:00] VITALS: BP 160/90
[2018-11-18] MEDS: ATORVASTATIN 20 MG TABLET PO SCH (20:15)
[2018-11-18] MEDS: RIVAROXABAN 20 MG TABLET PO SCH (20:15)
[2018-11-18] MEDS: QUETIAPINE 25MG TABLET PO SCH (20:16)
[2018-11-19 02:15] VITALS: BP 164/74
[2018-11-19 07:00] VITALS: BP 173/72
[2018-11-19] MEDS ORDERED: CEFT2FRO2 IVPB (08:00)
[2018-11-19] MEDS: OXCARBAZEPINE 150 MG TABLET PO SCH (08:32)
[2018-11-19] MEDS: DIVALPROEX 125 MG CAP.SPRINK PO SCH (08:32)
[2018-11-19] MEDS: LISINOPRIL 5 MG TABLET PO SCH (08:33)
[2018-11-19] MEDS: AMIODARONE 200 MG TABLET PO SCH (08:33)
[2018-11-19] MEDS: ACETAMINOPHEN 325 MG TABLET PO PRN (10:58)
[2018-11-19] MEDS: CEFTRIAXONE PMX 1GM/50ML 50 ML IV SCH (10:58)
[2018-11-19 13:09] VITALS: BP 151/48
== END 2018-11-19 14:05 ==
LOC: ED 05:57 → EDIP 08:14 → INTOOBSV 08:14 → 4EST 15:24
PROVIDERS: ADMIT Hospitalist; ATTEND Hospitalist
DX: G40.909 Epilepsy, unspecified, not intractable, without status epilepticus (principal); M86.672 Other chronic osteomyelitis, left ankle and foot; E44.0 Moderate protein-calorie malnutrition; D62 Acute posthemorrhagic anemia; D68.59 Other primary thrombophilia; D72.829 Elevated white blood cell count, unspecified; E78.00 Pure hypercholesterolemia, unspecified; E78.5 Hyperlipidemia, unspecified; E86.0 Dehydration; E87.6 Hypokalemia; I10 Essential (primary) hypertension; I25.10 Atherosclerotic heart disease of native coronary artery without angina pectoris; I48.2 Chronic atrial fibrillation; M81.0 Age-related osteoporosis without current pathological fracture; Z79.899 Other long term (current) drug therapy; Z82.49 Family history of ischemic heart disease and other diseases of the circulatory system; Z86.73 Personal history of transient ischemic attack (TIA), and cerebral infarction without residual deficits; Z87.891 Personal history of nicotine dependence; Z90.710 Acquired absence of both cervix and uterus; Z96.643 Presence of artificial hip joint, bilateral; Z95.5 Presence of coronary angioplasty implant and graft; I95.9 Hypotension, unspecified; Z68.24 Body mass index [BMI] 24.0-24.9, adult; Z45.2 Encounter for adjustment and management of vascular access device; Z79.01 Long term (current) use of anticoagulants
CPT/HCPCS: 36415; 70450; 71045; 80048; 80053; 81001; 83605; 83735; 84100; 84443; 84484; 85025; 87040; 87086; 93005; 96365; 96366; 96367; 96368; 96375; 97161; 97605; 99284; G0378; G8978; G8979; G8990; J0360; J0696; J3475; J3480; J7030; J7040; 96374; 99285

== ENCOUNTER 2019-01-11 13:00 | Day surgery (SDC) | payer MEDICARE ==
[~2019-01-11] VITALS: Ht 167.6 cm; Wt 70.4 kg
[~2019-01-11 13:00] MED LIST changes: -AMLO10TA6 PO; +AMLO10TA8 PO; +CEFAZOLIN 1,000 MG ONE; +CEFT2FRO2 IVPB; +DEXAMETHASONE 4 MG/ML, 1ML ONE; +DIVA125C2 PO; +LISI2.5T PO; +METOPROLOL 1 MG/ML, 5ML ONE; +ONDANSETRON 2MG/ML, 2ML ONE; +PROPOFOL 10 MG/ML, 20ML ONE; +PROPOFOL 10 MG/ML, 50ML ONE; -QUET25TA PO; +QUET25TA7 PO
[2019-01-11] MEDS ORDERED: LACTATED RINGERS 1,000 ML IV SCH ×2 (14:20→20:30)
[2019-01-11] MEDS ORDERED: LISI30TA4 PO (14:25)
[2019-01-11] MEDS ORDERED: PHEN97.2 PO (14:25)
[2019-01-11] MEDS ORDERED: SIMV40TA3 PO (14:25)
[2019-01-11 14:28] VITALS: BP 155/72
[2019-01-11] MEDS ORDERED: BUPIVACAINE/PF 0.5% ONE (14:32)
[2019-01-11] MEDS ORDERED: LIDOCAINE 1%, 20ML ONE (14:33)
[2019-01-11] MEDS ORDERED: FENTANYL PF 100 MCG/2ML ONE ×2 (15:49→18:27)
[2019-01-11] MEDS ORDERED: VANCOMYCIN 1,000 MG ONE (16:15)
[2019-01-11] MEDS ORDERED: hydrALAzine 20 MG/ML, 1ML ONE (18:12)
[2019-01-11] MEDS ORDERED: hydrALAzine 20 MG/ML, 1ML IV PRN (18:30)
[2019-01-11] MEDS ORDERED: LABETALOL 5MG/ML, 20ML IV PRN (18:30)
[2019-01-11] MEDS ORDERED: HYDROmorphone 2 MG/ML, 1ML IVPush PRN (18:30)
[2019-01-11] MEDS ORDERED: OXYcodone 5 MG/5 ML ORAL.SOL UDC PO PRN (18:30)
[2019-01-11] MEDS ORDERED: FENTANYL PF 100 MCG/2ML IV PRN (18:30)
[2019-01-11] MEDS ORDERED: ONDANSETRON 2MG/ML, 2ML IV PRN ×2 (18:30→20:30)
[2019-01-11] MEDS ORDERED: PROMETHAZINE 25 MG/ML, 1ML IV PRN (18:30)
[2019-01-11] MEDS ORDERED: ACETAMINOPHEN 325 MG TABLET PO PRN (20:30)
[2019-01-11] MEDS ORDERED: morphine SULFATE 10 MG/ML, 1ML IV PRN (20:30)
[2019-01-11] MEDS ORDERED: OXYcodone/APAP 5/325MG TABLET PO PRN (20:30)
[2019-01-11] MEDS ORDERED: PHARMACOKINETIC MONITORING MC PRN (20:30)
[2019-01-11] MEDS ORDERED: PHARMACOKINETIC CONSULTATION MC ONE (20:30)
[2019-01-11] MEDS ORDERED: VANCOMYCIN PER PHARMACY MC PRN (20:30)
[2019-01-11] MEDS ORDERED: VANCOMYCIN 1,400 MG in SODIUM CHLORIDE 0.9% 250 ML IV ONE (21:00)
[2019-01-12] MEDS: KETOROLAC 30 MG/1 ML IV SCH ×3 (00:15→08:26)
[2019-01-12 03:09] VITALS: BP 140/76
[2019-01-12 04:16] VITALS: BP 141/65
[2019-01-12 05:40] LABS: CREATININE 0.75 mg/dL (0.55-1.02)
[2019-01-12 06:40] VITALS: BP 142/63
[2019-01-12] MEDS ORDERED: HYDR50CA PO (12:34)
[2019-01-12] MEDS ORDERED: OXYC5CAP2 PO (12:34)
[2019-01-12] MEDS ORDERED: CEPH-368 PO (12:35)
[2019-01-12] MEDS ORDERED: GABA300C PO (12:37)
[2019-01-13] MEDS ORDERED: VANCOMYCIN 1,400 MG in SODIUM CHLORIDE 0.9% 250 ML IV SCH
== END 2019-01-12 13:05 | disposition home or self-care (01) ==
LOC: OR 13:00 → 4NOR 19:50 → UNDOADMOB 20:16 → OR 20:20 → UNDODISOB 01-12 13:05 → OR 01-12 13:05
PROVIDERS: ATTEND Orthopaedic Surgery
DX: M86.8X6 Other osteomyelitis, lower leg (principal); I25.10 Atherosclerotic heart disease of native coronary artery without angina pectoris; G40.909 Epilepsy, unspecified, not intractable, without status epilepticus; I10 Essential (primary) hypertension; Z87.891 Personal history of nicotine dependence; Z72.89 Other problems related to lifestyle; Z88.5 Allergy status to narcotic agent; Z88.0 Allergy status to penicillin; Z88.8 Allergy status to other drugs, medicaments and biological substances
CPT/HCPCS: 11982; 27640; 27870; 36415; 64445; 73600; 82565; 84520; 87015; 87070; 87075; 87077; 87102; 87116; 87176; 87186; 87205; 87206; 96365; 97163; 97166; C1713; C1762; J0360; J0690; J2405; J2704; J3010; J3370; J7050; J7120; 76001; G0378; J1100; J1885; J3490